=== PATIENT | male | born 1970 | race Caucasian/White ===

== ENCOUNTER 2017-03-22 10:12 | Day surgery (SDC) | payer BC ==
[2017-03-21 14:29] VITALS: BMI 27.8
[~2017-03-22 10:12] MED LIST: ALPRAZolam 0.25 MG TAB PO PRN; ASPIRIN 325 MG TAB PO STA; SODIUM CHLORIDE 0.9% 1,000 ML in EMPTY BAG 1 BAG IV ONE
[2017-03-22] MEDS ORDERED: HYDROmorphone 1 MG/ML 1 ML SYRINGE IVP STA (10:52)
[2017-03-22] MEDS ORDERED: IV FLUID CONTINUATION 1,000 ML IV ONE (11:58)
[2017-03-22] MEDS ORDERED: MIDAZOLAM 2 MG/2 ML VIAL IV ONE (12:18)
[2017-03-22] MEDS ORDERED: fentaNYL (PF) 50 MCG/ML 2 ML AMP IV ONE (12:20)
[2017-03-22] MEDS ORDERED: LIDOCAINE 2% INJ 20 MG/ML SQ ONE (12:20)
[2017-03-22] MEDS: HYDROmorphone 2 MG/ML 1 ML SYRINGE IV ONE ×2 (12:32→12:51)
[2017-03-22] MEDS ORDERED: IODIXANOL 320 MG/ML 100 ML INTRAARTER ONE (12:51)
[2017-03-22] MEDS ORDERED: SODIUM CHLORIDE 0.9% 1,000 ML IV SCH (13:00)
--- NOTE | 2017-03-22 13:16 | IR ---
EXAMINATION TYPE: IR angio abdominal w runoff DATE OF EXAM: 03/22/2017 1:12 PM COMPARISON: NONE HISTORY: Peripheral vascular occlusive disease. Fluoroscopy was provided to the referring clinician. See dictated report from cardiology.
--- NOTE | 2017-03-22 13:23 | PCN ---
DATE OF PROCEDURE: 03/22/2017 ABDOMINAL AORTOGRAM AND LEFT LOWER EXTREMITY RUNOFF. PERFORMING PHYSICIAN: Stephen Howard MD, restorative art embalmer. PROCEDURE PERFORMED: 1. Abdominal aortogram. 2. Bilateral iliac angiogram. 3. Left lower extremity runoff. INDICATION: This is a pleasant 46-year-old gentleman who was seen yesterday in the office for what seems to be critical limb ischemia involving the left foot. On physical examination, he had pulse in the left dorsalis pedis and diminished pulse in the left posterior tibial artery. He was brought today to undergo a peripheral angiogram. APPROACH: Right common femoral artery. COMPLICATIONS: None. LEVEL OF SEDATION: Moderate with sedation length being about half an hour. PROCEDURE DESCRIPTION: After obtaining an informed consent, the patient was brought to the cardiac confectionery laboratory manager. Right common femoral artery was cannulated using micropuncture technique. The micropuncture wire passed easily, then I placed a 5 Macedonian sheath in the right common femoral artery. Subsequently, I did an abdominal aortogram and bilateral iliac artery angiogram using a 6 Macedonian pigtail catheter which was initially placed at the level of the renal arteries then it was pulled into above the bifurcation of the aorta to right and left common iliac arteries. After that, I did select the left superficial femoral artery using a 5 Macedonian ( ) catheter with 0.035 glidewire. Then I did exchange my ( ) catheter into a straight multihole catheter over the glidewire. I did selective left lower extremity runoff. The procedure was completed without any complication. SELECTIVE PERIPHERAL ANGIOGRAM: 1. The aorta is angiographically normal. 2. Common iliac arteries: The right and left common iliac arteries are angiographically normal. 3. External iliac arteries: The right and left external iliac arteries are angiographically normal. 4. Internal iliac arteries: Both internal iliac arteries are patent. 5. Common femoral arteries: The right and left common femoral arteries are angiographically normal. 6. SFA: The left SFA is angiographically normal. 7. Profunda: The left profunda is patent. 8. Popliteal: The left popliteal is angiographically normal. 9. Below the knee: The left posterior tibial is patent. The left peroneal is patent. The left anterior tibial artery is occluded just by the foot by the transition to dorsalis pedis. CONCLUSION: Occluded left dorsalis pedis artery. POSTPROCEDURE MANAGEMENT: I am going to consult vascular surgeon to evaluate the patient to see if he would benefit from any kind of surgical revascularization, which I doubt at this point. Besides that, the patient is not a candidate to have any percutaneous intervention in view of the small vessel artery distal in the foot. We will continue following up with him and he is going to be discharged home today.
[2017-03-22 13:55] VITALS: TEMP 97.5
[2017-03-22] MEDS: HYDROmorphone 1 MG/ML 1 ML SYRINGE IVP PRN ×2 (14:44→17:05)
[2017-03-22] MEDS ORDERED: fentaNYL (PF) 50 MCG/ML 2 ML AMP IV STA (15:46)
[2017-03-22 15:55] VITALS: RESP 18
[2017-03-22] MEDS ORDERED: HEPARIN SODIUM,PORCINE 5,000 UNIT/ML 1 ML VIAL IV ONE (17:01)
[2017-03-22] MEDS ORDERED: HEPARIN SODIUM,PORCINE 5,000 UNIT/ML 1 ML VIAL IV PRN (17:01)
[2017-03-22] MEDS ORDERED: HEPARIN SODIUM,PORCINE/D5W PMX 25,000 UNIT in DEXTROSE/WATER 1 500ML.BAG IV SCH (17:15)
[2017-03-22 17:28] LABS: Basophils % (A) 0 %; CH 32.1; CHCM 34.7; Eosinophils # (A) 0.2 k/uL (0-0.7); Eosinophils % (A) 1 %; HCT 43.5 % (39.0-53.0); HDW 2.76; HGB 14.9 gm/dL (13.0-17.5); Luc # (Auto) 0.35; Luc % (Auto) 3; Lymphocytes # (A) 2.8 k/uL (1.0-4.8); Lymphocytes % (A) 27 %; MCH 31.9 pg (25.0-35.0); MCHC 34.3 g/dL (31.0-37.0); MCV 92.8 fL (80.0-100.0); Mean Platelet Volume 6.1; Monocytes # (A) 0.6 k/uL (0-1.0); Monocytes % (A) 6 %; Neutrophils # (A) 6.5 k/uL (1.3-7.7); Neutrophils % (A) 62 %; RBC 4.69 m/uL (4.30-5.90); RDW 14.3 % (11.5-15.5); WBC 10.5 k/uL (3.8-10.6); WBC (Perox) 10.37
[2017-03-22 17:43] LABS: Partial Thromboplastin Time 22.4 sec (22.0-30.0); Prothrombin Time 10.4 sec (9.0-12.0)
[2017-03-22 18:12] VITALS: BP 135/91; PULSE 93
== END 2017-03-22 18:47 | disposition other institution (70) ==
LOC: CATHCVL 10:12 → 3OBS 12:50 → CATHCVL 18:47
PROVIDERS: ATTEND Internal Medicine Interventional Cardiology
DX: I70.292 Other atherosclerosis of native arteries of extremities, left leg (principal); Z87.891 Personal history of nicotine dependence; I10 Essential (primary) hypertension; E78.5 Hyperlipidemia, unspecified; Z88.0 Allergy status to penicillin
CPT/HCPCS: 36247; 75625; 75716; 85025; 85610; 85730; 99152; 99153; C1769 ×4; C1894 ×2; J2001; J2250; J1170 ×2; J1644 ×2; Q9967; J3010

== ENCOUNTER → 2017-04-15 | Outpatient (CLI) | payer BC ==
--- NOTE | 2017-04-15 22:23 | MR ---
EXAMINATION TYPE: MR foot LT wo con DATE OF EXAM: 04/15/2017 COMPARISON: NONE HISTORY: Cellulitis, 5th toe amputated, 1st/2nd toes are black/painful, no trauma, pt has blood clot Standard multiplanar, multisequence MRI departmental protocol Multiplanar, multisequence images of the left foot were acquired. FINDINGS: Amputation defect past the fifth metatarsal is noted. There is abnormal soft tissue surroun ding fifth metatarsal head with loss of normal subcutaneous fat. There is suggestion of diminished T1 and increased T2 signal fifth metatarsal head. Acute osteomyelitis at this level cannot be excluded. There is marked flexion of second through fourth toes. Bone marrow signal intensity is otherwise pres erved. Articulations are maintained. Normal sinus tarsi fat is appreciated. No worrisome focal fluid collection is seen. Edematous change in the subcutaneous tissue at level of proximal phalanx second t hrough fourth toes is noted. IMPRESSION: Evaluation for osteomyelitis suboptimal without IV contrast. Cannot exclude cellulitis and adjacent o steomyelitis involving the fifth metatarsal head.
== END | disposition home or self-care (01) ==
LOC: RADMRIMAIN 20:06
PROVIDERS: ATTEND Family Medicine
DX: L03.032 Cellulitis of left toe (principal)

== ENCOUNTER → 2020-01-07 | Outpatient (CLI) | payer BC ==
[2020-01-07 12:03] VITALS: BP 118/77; PULSE 75; RESP 18
--- NOTE | 2020-01-07 20:11 | P.PAINCN ---
History of Present Illness - Reason for Consult Consult date: 01/07/20 - History of Present Illness This is 49 years old male, referred to [facility] pain clinic for evaluation regarding right occipital nerve block, patient reported that he stopped having headache in 2007 after he had traumatic injury to his head, and the headache was treated previously by injection in his neck, which was done several years ago, he did very well for long-term until 2 months ago he started having severe headache mainly on the right side starting in the base of the skull at the occipital area and radiated to the top of the head, he denies any visual changes, he denies any aura, he denies any numbness or tingling sensation in the upper extremity, he denies any fever or night sweats, no change in the bowel movement or urination Past Medical History Past Medical History: GERD/Reflux, Hyperlipidemia, Hypertension, Vascular Disorder Additional Past Medical History / Comment(s): states hx of embolism left foot,cold to touch,purple/red in color,swollen,and painful ,insomnia, PAIN AT BACK OF HEAD History of Any Multi-Drug Resistant Organisms: None Reported Past Surgical History: Orthopedic Surgery Additional Past Surgical History / Comment(s): rt shoulder repair x2,rt hand pins-later removed,JO,. LEFT KNEE ARTHROSCOPY, amputation 5th toes left foot. Past Anesthesia/Blood Transfusion Reactions: No Reported Reaction Past Psychological History: Anxiety Smoking Status: Never smoker Past Alcohol Use History: Rare Past Drug Use History: None Reported - Past Family History Father Additional Family Medical History / Comment(s): heart problems Mother Family Medical History: Cancer Additional Family Medical History / Comment(s): heart problems Medications and Allergies Home Medications Medication Instructions Recorded Confirmed Type Atorvastatin Calcium [Lipitor] 80 mg PO DAILY 03/21/17 01/07/20 History Losartan Potassium [Cozaar] 50 mg PO DAILY 03/21/17 01/07/20 History QUEtiapine FUMARATE [SEROquel] 25 mg PO DAILY 03/21/17 01/07/20 History Ranitidine HCl [Zantac] 150 mg PO DAILY PRN 03/21/17 01/07/20 History Aspirin [Adult Low Dose Aspirin EC] 81 mg PO DAILY 01/05/20 01/07/20 History Clopidogrel [Plavix] 75 mg PO DAILY 01/05/20 01/07/20 History Ibuprofen [Motrin Ib] 800 mg PO DAILY PRN 01/05/20 01/07/20 History Migrain Rx- (Unknown Name) 1 tab PO DIRECTED PRN 01/05/20 01/07/20 History Oxymetazoline 0.05% Nasl Benavides 1 spray EA NOSTRIL DIRECTED PRN 01/05/20 01/07/20 History [Afrin 0.05% Nasal Benavides] Allergies Allergy/AdvReac Type Severity Reaction Status Date / Time Penicillins Allergy Anaphylaxis Verified 01/07/20 11:44 Physical Exam Vitals: Vital Signs Pulse Resp BP Pulse Ox 01/07/20 11:45 75 18 118/77 99 Physical Examinations : -Constitutiona : Cooperative , not in acute distress . -HEENT : nech : supple , no Lymphadenopathy , normal thyroid size . : eyes : no ptosis , no icterus, no photophobia . : ENT : normal of hearing , normal oropharynx , no Thrush . - Respiratory : Chest clear to auscultations Bilaterally , no wheezing , no Rhonchi . - Cardiovascula : regular rate and rhythem , S1 , S2 , no S3 , no S4. - Gastrointestina : abdomen soft no tenderness , bowel sounds , no organomegally . - Genitourinary : Defferred . - neurologic : Cranial nerve II to XII intact , no focal neurological deffecit . -psychatric : alert , oriented X 3 , appropriate affect , intact judgment and insight . -Lymphatic : no Lymphadenopathy . - musculoskeltal : Cervical Spine motor stregnth in the deltoid and biceps, normal right side , normal Left side motor stregnth biceps and the wrist extensors normal right side ,normal left side . motor stregnth in the triceps muscle . normal Right side , normal Left side deep tendon reflexes normal at the biceps , normal at Brachioradialis , normal at triceps. cervical facet loading test: Positive Bilaterally (R>L ) Spurling test= negative bilaterally. Neck distraction test= negative bilaterally. Dave sign = negative bilaterally. Tenderness over the occipital nerve on the right side Lumber spine moter stegnth lower extremities ,thigh and legs 5/5 Right side , 5/5 Left side Results Comments: MRI of the brain normal Assessment and Plan Plan: Assessment and plan=1-right occipital neuralgia. 2-cervical spondylosis with cervical facet arthropathy ( clinically ). Patient will be good candidate to have right-sided occipital nerve block VONNIE, with doing the procedure twice, if patient continued to have The headache and neck pain, then we'll consider doing MRI of the cervical spine. Time with Patient: Greater than 30 PQRS Measure Charge Sheet Measure #130: Documentation of Current Meds in Medical Chart: Patient's medications documented in chart Measure #226: Tobacco Use: Screen & Cessation Intervention: Pt not a tobacco user Measure #111: Pneumonia Vaccination: Pneumococcal vaccine NOT administered or previously given Measure #47: Advance Care Plan: Advance care planning discussed & documented, pt chose/unable to give Measure #412: Opioid Treatment Agreement: No documentation of signed opioid treatment agreement Measure #408: Opioid Therapy Follow-up Evaluation: Patient had NO f/u eval minimum every 3 months during opioid therapy Measure #317: Preventitive Care & Scrn High Bld Press & F/U: Normal blood pressure, f/u not required Measure #128: Body Mass Index (BMI) Screening & Follow-up: BMI documented ABOVE normal parameters - f/u documented Measure #131: Pain Assessment & Follow-up: Pain positive & plan documented, Follow-up scheduled Measure #431: Unhealthy Alcohol Use Preventative Care & Scrn: Patient not identified as an unhealthy alcohol user PQRS Narrative: Smoking Status Never smoker Blood Pressure 118/77 Pain Intensity [Posterior Head 7 ] Scale Used Numeric (1 - 10) Hx Alcohol Use (MH) No Home Medications: Ambulatory Orders Atorvastatin Calcium [Lipitor] 80 mg PO DAILY 03/21/17 Losartan Potassium [Cozaar] 50 mg PO DAILY 03/21/17 QUEtiapine FUMARATE [SEROquel] 25 mg PO DAILY 03/21/17 Ranitidine HCl [Zantac] 150 mg PO DAILY PRN 03/21/17 Aspirin [Adult Low Dose Aspirin EC] 81 mg PO DAILY 01/05/20 Clopidogrel [Plavix] 75 mg PO DAILY 01/05/20 Ibuprofen [Motrin Ib] 800 mg PO DAILY PRN 01/05/20 Migrain Rx- (Unknown Name) 1 tab PO DIRECTED PRN 01/05/20 Oxymetazoline 0.05% Nasl Benavides [Afrin 0.05% Nasal Benavides] 1 spray EA NOSTRIL DIRECTED PRN 01/05/20
== END | disposition home or self-care (01) ==
LOC: PNWHC3 11:39
PROVIDERS: ATTEND Specialist
DX: M54.81 Occipital neuralgia (principal); M47.812 Spondylosis without myelopathy or radiculopathy, cervical region; Z79.891 Long term (current) use of opiate analgesic; Z79.82 Long term (current) use of aspirin; Z79.899 Other long term (current) drug therapy; Z88.0 Allergy status to penicillin
CPT/HCPCS: 99201